=== PATIENT | female | born 1950 | race Hispanic/Latino ===

== ENCOUNTER 2017-04-18 11:19 | Outpatient (CLI) | payer MEDICARE ==
--- NOTE | 2017-04-18 12:31 | XRay Report ---
ROUTINE CHEST, TWO VIEWS: HISTORY: Preoperative cardiovascular clearance. The trachea, heart, mediastinal contour, lung cerda and bony thorax are unremarkable. IMPRESSION: Unremarkable chest x-ray.
[2017-04-18 12:50] LABS: Hematocrit 41.8 % (30.3-42.9); Hemoglobin 14.2 gm/dl (10.1-14.3); Mean Corpuscular HGB Conc 34 % (30-34); Mean Corpuscular Hemoglobin 30 pg (28-32); Mean Corpuscular Volume 89 fl (79-97); Platelet Count 263 K/mm3 (140-440); Red Blood Count 4.67 M/mm3 (3.65-5.03); Red Cell Distribution Width 14.2 % (13.2-15.2); White Blood Count 7.6 K/mm3 (4.5-11.0)
== END 2017-04-18 11:20 | disposition home or self-care (01) ==
LOC: XRAY 11:19
PROVIDERS: ATTEND Obstetrics & Gynecology Gynecology
DX: Z01.810 Encounter for preprocedural cardiovascular examination (principal)
CPT/HCPCS: 36415; 71020; 85027